=== PATIENT | female | born 1945 | race Caucasian/White ===

== ENCOUNTER → 2017-10-03 | Outpatient (CLI) | payer MEDICARE, OTHER | END | disposition home or self-care (01) | LOC: HKI 09:50 | DX: M54.31 Sciatica, right side (principal); Z96.651 Presence of right artificial knee joint | CPT/HCPCS: 73562; 73562-RT ==

== ENCOUNTER → 2018-04-10 | Outpatient (CLI) | payer MEDICARE, OTHER | END | disposition home or self-care (01) | LOC: HKI 11:00 | DX: M41.9 Scoliosis, unspecified (principal); M21.961 Unspecified acquired deformity of right lower leg; Z85.3 Personal history of malignant neoplasm of breast; Z87.820 Personal history of traumatic brain injury | CPT/HCPCS: 73562; 73562-50 ==